=== PATIENT | female | born 1935 | race Caucasian/White ===

== ENCOUNTER 2020-06-15 11:06 | Outpatient (CLI) | payer MEDICARE, BC ==
[~2020-06-15] VITALS: Ht 157.6 cm; Wt 74.9 kg
[~2020-06-15 11:06] MED LIST: ALBUTEROL SULFAT3 M3 IH; ALBUTEROL0.83 MG/ML IH; AMBIEN 5MG TABLE5 MG PO; COZAAR 50MG50 MG/TAB PO; DULCOLAX S10 MG/SUPP RC; FERRO-TIME325 MG PO; GOOD SENSE400 MG/5 M PO; NORCO 325 MG-7.1 TAB PO; PULMICORT0.5 MG/2 M IH; RT ADVAIR 228 DISKUS IH; RT SPIRIVA18 MCG IH; TYLENOL 325MG325 MG PO; ULTRAM 50MG TAB50 MG PO; XARELTO10 MG PO; ZOFRAN 4MG T4 MG/TAB PO
[2020-06-15 11:50] LABS: HEMATOCRIT 39.7 % (37.0-47.0); HEMOGLOBIN 12.7 g/dl (12.5-16.0); MEAN CELL VOLUME 85 fl (80.0-100.0); MEAN CORPUSCULAR HEMOGLOBIN 27 pg (27.0-31.0); MEAN CORPUSCULAR HGB CONC 32 g/dl (33.0-37.0); MEAN PLATELET VOLUME 9.8 fl (7.4-10.4); PLATELET COUNT 211 K/mm3 (130-400); RED BLOOD COUNT 4.65 M/mm3 (4.10-5.30); REDCELL DISTRIBUTION WIDTH-CV 14.8 % (11.5-14.5)
[2020-06-15 11:58] LABS: PROTHROMBIN TIME 11.6 SECONDS (9.7-12.8)
[2020-06-15 12:00] LABS: CALCIUM 9.2 mg/dL (8.4-10.2); CREATININE, serum 0.79 (0.52-1.25); POTASSIUM 4.3 mmol/L (3.4-5.0)
[2020-06-15 12:19] VITALS: BP 147/92; PULSE 67; TEMP 97.8
[2020-06-15] MEDS ORDERED: LUNESTA2 MG PO (12:22)
[2020-06-15] MEDS ORDERED: PROLIA60 MG/ML SQ (12:23)
[2020-06-15] MEDS ORDERED: PROVENTIL0.09 MG/A1 IH (12:24)
[2020-06-15] MEDS ORDERED: RT SPIRIVA18 MCG IH (12:24)
[2020-06-15 12:55] VITALS: BP 143/88; PULSE 60
[2020-06-15 13:00] VITALS: BP 145/87; PULSE 56
--- NOTE | 2020-06-15 13:02 | NUR ---
Report from Brandin Cuevas.
[2020-06-15 13:15] VITALS: BP 140/100; PULSE 55
[2020-06-15 13:30] VITALS: BP 147/86; PULSE 57
[2020-06-15 13:45] VITALS: BP 140/90; PULSE 65
--- NOTE | 2020-06-15 14:08 | NUR ---
Discharge instructions given to pt.Pt verbalizes understanding.INT removed,catheter tip intact.Appointment clarified with Tessy at office for tomorrow in [place].
== END 2020-06-15 14:13 | disposition home or self-care (01) ==
LOC: COL.RAD 11:06
PROVIDERS: Internal Medicine Cardiovascular Disease
DX: I34.0 Nonrheumatic mitral (valve) insufficiency (principal); R00.1 Bradycardia, unspecified; I51.7 Cardiomegaly
CPT/HCPCS: J2370; J2704

== ENCOUNTER 2020-12-27 05:43 | Inpatient (IN) | payer MEDICARE, BC ==
[~2020-12-27] VITALS: Ht 154.9 cm; Wt 72.8 kg
[2020-12-27] VITALS (14 sets, daily range): BP systolic 87–125; BP diastolic 49–77; PULSE 58–81; TEMP 97.6–98.5
[~2020-12-27 05:43] MED LIST changes: +LUNESTA2 MG PO; +PROLIA60 MG/ML SQ; +PROVENTIL0.09 MG/A1 IH
[2020-12-27] MEDS ORDERED: LUNESTA2 MG PO (06:18)
[2020-12-27] MEDS ORDERED: K-DUR20 MEQ PO (06:18)
[2020-12-27] MEDS ORDERED: PROAIR HFA0.09 MG/AC IH (06:19)
[2020-12-27] MEDS ORDERED: LASIX 20MG TABL20 MG PO (06:19)
[2020-12-27] MEDS ORDERED: ASPIRIN 81M81 MG/TA2 (06:52)
--- NOTE | 2020-12-27 11:00 | NUR ---
Patient arrived from post-op to Rm 332. Patient had a left TK and is currently sleeping. Patient drsing is Xeoform, 4 x4, ABD, soft roll and lucas wrap. Hans hose are on along with SCDs. Patient has 20 gaugeright hand. Patient is AMBLER. Patient's at bedside. Call light and bedside table are within reach. Will continue to monitor patient throughout shift.
--- NOTE | 2020-12-27 20:30 | NUR ---
PT ASSISTED TO BATHROOM, VOIDS AND BACK TO BED. PT REPORTS FEELING LIKE LEFT LEG IS PULLING, FOB ELEVATED AND ICE PACK REPLACED. IVF TO RT HAND, INFUSING WITHOUT PROBLEM.
--- NOTE | 2020-12-27 21:00 | NUR ---
TAKES SCHEDULED MEDS AT THIS TIME. PT ALERT AND ORIENTED, [employer] [place]. DRSG INTACT TO LEFT KNEE.
--- NOTE | 2020-12-28 01:58 | NUR ---
PT TAKES NORCO 1 TAB PO FOR PAIN TO LEFT KNEE.
[2020-12-28 03:32] VITALS: BP 106/60; PULSE 60; TEMP 98.2
--- NOTE | 2020-12-28 05:00 | NUR ---
ASSISTED PT TO BATHROOM WITH WALKER AND GAIT BELT. DOES WELL, VOIDS AND BACK TO BED. TAKES SCHEDULED ES TYLENOL AT THIS TIME.
--- NOTE | 2020-12-28 06:42 | NUR ---
Report received from MILAGROS Juan. Patient is sleeping peacefully in bed. Call light and bedside table are within reach. Will continue to monitor throughout shift.
[2020-12-28] MEDS ORDERED: XARELTO10 MG PO (07:24)
[2020-12-28] MEDS ORDERED: NORCO 325 MG-51 TAB PO (07:25)
[2020-12-28 07:49] VITALS: BP 106/66; PULSE 66; TEMP 97.4
--- NOTE | 2020-12-28 10:55 | NUR ---
GIRMA met with the patient and her , Rajesh (ph#[phone]), to discuss discharge plan. The patient lives in [place] with her . She reports independence with ADLs and has a cane and two walkers. The patient's PCP is Dr. Cristi Beaver and she receives her medications from [facility] in . She reports no difficulties obtaining her meds. The patient does not have a DPOA-HC and she was not interested in completing one at this time. The patient plans to return home with her and receive outpatient PT at [facility] upon discharge. No additional needs at this time. *Discharge plan: home with and outpatient PT*
[2020-12-28 11:53] VITALS: BP 106/55; PULSE 66; TEMP 98
--- NOTE | 2020-12-28 13:40 | NUR ---
Initial visit; Patient states pain is severe but thanked [employer] for offering God's blessings and keeping her in [employer]'s prayers.
[2020-12-28 15:30] VITALS: BP 121/60; PULSE 71; TEMP 97.9
--- NOTE | 2020-12-28 15:32 | NUR ---
Patient was frustrated because she did not get lunch, however, after speaking with [employer], the patient told him food services "suck" and she did not want her meal. This nurse placed patient's breakfast and lunch order this morning and told patient she was responsible for calling and placing her meals. She asked this nurse why she had to call her own meals in and this nurse told her she is the one who knows what she wants to eat and patient was not happy with that answer. This nurse asked patient is she wanted a snack before dinner and she declined but later her asked if she could get a snack and I gave him crackers with peanut butter and this nurse told him I could call food services and get her a snack and he declined stating he would take the crackers and peanut butter.
--- NOTE | 2020-12-28 19:00 | NUR ---
RECEIVED CHANGE OF SHIFT REPORT FROM DAY SHIFT NURSE. PATIENT UP IN CHAIR WITH NO NEEDS REPORTED, FAMILY MEMBER PRESENT IN ROOM, VISITING WITH PATIENT.
[2020-12-28 19:23] VITALS: BP 118/72; PULSE 77; TEMP 98.5
[2020-12-28 23:41] VITALS: BP 111/56; PULSE 67; TEMP 98.3
[2020-12-29 03:25] VITALS: BP 109/59; PULSE 66; TEMP 98.5
--- NOTE | 2020-12-29 07:02 | NUR ---
CHANGE OF SHIFT REPORT GIVEN TO DAY SHIFT NURSE, ELIEZER LINARES.
[2020-12-29 07:32] VITALS: BP 132/53; PULSE 63; TEMP 97.9
--- NOTE | 2020-12-29 08:56 | NUR ---
PT UP TO RECLINER FOR BREAKFAST. DRESSING CDI TO LEFT KNEE. PAIN WELL CONTROLLED WITH PO MEDS. PLAN ON DISCHARGE LATER THIS PM. SURAJ MOLINA ROUNDED AND WILL RE-EVALUATE THIS PM.
[2020-12-29 11:55] VITALS: BP 107/60; PULSE 67; TEMP 98
== END 2020-12-29 16:30 | disposition home or self-care (01) | DRG 470 ==
LOC: SDCO 05:43 → SURG 07:12 → SDCO 07:30 → SURG 12-29 16:30
PROVIDERS: ADMIT Orthopaedic Surgery
PROC: 0SRD0J9 Replacement of Left Knee Joint with Synthetic Substitute, Cemented, Open Approach (ICD-10-PCS; principal; 2020-12-27 07:30)
DX: M17.12 Unilateral primary osteoarthritis, left knee (principal); I11.0 Hypertensive heart disease with heart failure; I50.9 Heart failure, unspecified; I25.10 Atherosclerotic heart disease of native coronary artery without angina pectoris; G56.20 Lesion of ulnar nerve, unspecified upper limb; J44.9 Chronic obstructive pulmonary disease, unspecified; K44.9 Diaphragmatic hernia without obstruction or gangrene; Z79.82 Long term (current) use of aspirin; Z79.891 Long term (current) use of opiate analgesic; Z96.651 Presence of right artificial knee joint; Z86.718 Personal history of other venous thrombosis and embolism; Z88.5 Allergy status to narcotic agent
CPT/HCPCS: A9284; C1713; C1776; J0690; J1100; J2250; J2270; J2405; J2704; J3010; J7042; J7120